=== PATIENT | male | born 1990 | race Caucasian/White ===

== ENCOUNTER 2024-12-18 10:33 | Emergency (ER) | payer SELFPAY ==
--- NOTE | 2024-12-18 11:10 | ED_ITS ---
HPI - General Adult General Chief complaint: Abdominal Pain Stated complaint: abd pain Time Seen by Provider: 12/18/24 11:00 History of Present Illness HPI narrative: This is a 34-year-old male presenting in police custody. After he was arrested he developed multiple complaints including paralysis and abdominal pain. He was then brought to the ED for fit for confinement. Before I saw the patient police said that they were going to release him as they could not hold him custody the [place] police were not going to arrive. The patient was informed of this. When I interviewed the patient he denied any complaints. He is denying any abdominal pain or paralysis. He does not want to be evaluated. He would like to leave the ED. Exam Narrative: APPEARANCE: No apparent distress. Malodorous Head: atraumatic. EYES: EOMI, NOSE: Atraumatic NECK: Trachea midline RESPIRATORY: No increased rate of breathing clear to auscultation CARDIOVASCULAR: Tachycardic ABDOMINAL: Non-distended soft nontender MUSCULOSKELETAl: No obvious deformities NEURO: Alert. Moving 4/4 extremities SKIN:: Warm, dry. Normal color PSYCHIATRIC: Normal affect Medical Decision Making MDM Narrative Medical decision making narrative: -Course: 34-year-old male presenting in police custody. He was released from police custody prior to my interview. When I interviewed him he denied any complaints. His physical exam significant for tachycardia but no abdominal tenderness or lung findings. He is moving for 4 extremities. Patient does not want any medical evaluation or treatment. Patient will be discharged. -DDX includes but is not limited to: Malingering, secondary gain, substance use disorder - Discharge Plan Discharge Clinical Impression: In police custody Patient Disposition: Home, Self-Care Condition: Stable Instructions: Antibiotic Form Additional Instructions: Please follow-up with primary care physician. You can return if you develop any new or worsening symptoms. Patient Language: Upper Sorbian Follow-up/Referrals: PHYSICIAN,BILINGUAL CUSTOMER SERVICE [Non-Staff] -
--- NOTE | 2024-12-18 11:14 | PC.NURSE ---
pt released by Roberto OLSON pt no longer willing to be seen
--- NOTE | 2024-12-18 11:29 | PC.NURSE ---
when this rn went to the room to discharge the patient the room was empty and his belongings (pants, shoes, socks, boxers, vape, wallet) were still in the room. another staff member stated that the patient left the room. patient reportedly left the ER through the doors to the hospital. security watched him exit and leave the hospital. belongings were placed in a belongings bag with a sticker placed on it.
== END 2024-12-18 12:08 | disposition left against medical advice (07) ==
PROVIDERS: Emergency Provider Emergency Medicine
DX: R10.9 Unspecified abdominal pain (principal)
CPT/HCPCS: 99281